=== PATIENT | male | born 1970 | race Caucasian/White ===

== ENCOUNTER 2020-10-04 21:35 | Inpatient (IN) ==
[2020-10-04] MEDS ORDERED: SODIUM CHLORIDE 0.9% 1000ML 1,000 ML IV ONE (22:01)
[2020-10-04] MEDS ORDERED: DEXAMETHASONE SOD INJ 10 MG/ML VIAL IV ONE (22:01)
--- NOTE | 2020-10-04 22:09 | Emergency Department Note ---
History of Present Illness General Chief complaint: Illness Stated complaint: SOB,COUGH POSSIBLY DEHYDRATED, COVID+ Time Seen by Provider: 10/04/20 21:42 Source: patient Mode of arrival: ambulatory Limitations: no limitations History of Present Illness This patient is a 50-year-old male who presents to emergency department for evaluation of shortness of breath, dehydration and positive COVID-19 test. Patient first developed COVID symptoms 5 days ago. He was tested t at [facility] yesterday which was positive. Patient reports he has had fever, cough, shortness of breath and fatigue. He has had a decreased appetite, but denies nausea/vomiting or diarrhea. Patient states that he is mostly short of breath with exertion but feels like he is able to catch his breath. He states that his cough has been dry. He has not been eating much due to his decreased appetite. He is concerned about dehydration as he states he has a history of dehydration. He states that his was very concerned about him and made him come here for evaluation after talking to a nurse friend. Patient has a history of sleep apnea and obesity. He denies any history of asthma or COPD. Home Medications Medication Instructions Recorded Confirmed Type albuterol sulfate [Ventolin HFA] 2 puff INHALATION QID PRN 10/04/20 10/04/20 History dextroamphetamine-amphetamine 20 - 40 mg PO QAM 10/04/20 10/04/20 History [Adderall XR] dextroamphetamine-amphetamine 10 mg PO DAILY PRN 10/04/20 10/04/20 History [Adderall] levothyroxine 200 mcg PO QAM 10/04/20 10/04/20 History lisinopril 20 mg PO QAM 10/04/20 10/04/20 History loratadine 10 mg PO DAILY PRN 10/04/20 10/04/20 History [id number] C-herb no.124 1 tab PO DAILY 10/04/20 10/04/20 History [Airborne Gummy] Allergies Allergy/AdvReac Type Severity Reaction Status Date / Time Bactrim Allergy Unknown hives Verified 03/09/20 12:58 sulfamethoxazole [Bactrim] Allergy Unknown hives Verified 10/04/20 22:52 trimethoprim [Bactrim] Allergy Unknown hives Verified 10/04/20 22:52 Past Med/Surg History Medical History HTN (hypertension) Obstructive sleep apnea Surgical History H/O: vasectomy Social History (Updated 10/04/20 @ 22:19 by Flores Saleem PA-C) Smoking Status: Never smoker Hx Alcohol Use: No Hx Substance Use: No Preferred Language: Haitian Communication Ability: Effective 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: No Beliefs That Will Affect Care: None marital status: Current Living Situation: Spouse Other Information That Helps Us Care for You: No Feels Safe at Home: Yes Safety Concerns: Feels Safe At This Time Assistive Devices: Oxygen - Continuous Review of Systems A total of 10 systems reviewed and were otherwise negative Physical Exam Vital Signs Vital Signs - 24 hr 10/04/20 21:38 10/04/20 21:45 10/04/20 22:05 Temperature 37.5 C Temperature Source Oral Pulse Rate 84 82 85 Pulse Rate [Apical] 84 Pulse Rate from SpO2 Sensor 85 Pulse Rhythm Regular Pulse Rhythm [Apical] Regular Pulse Strength [Apical] Normal Respiratory Rate 22 24 22 Respiratory Effort / Characteristics Non-Labored Spontaneous Respiratory Depth Normal Normal Respiratory Pattern Regular Blood Pressure 158/86 H Blood Pressure [Left Arm] 112/83 Blood Pressure Mean 110 Blood Pressure Mean [Left Arm] 92 Blood Pressure Position [Left Arm] Sitting Pulse Oximetry 90 85 L 86 L Oxygen Delivery Method Room Air Room Air Room Air Oxygen Flow Rate Sepsis Recent Fever Within 48 Hours No Sepsis New/Unexplained Change in Mental Status N/A Sepsis Action Taken by Nursing No Action Required 10/04/20 22:09 10/04/20 22:20 10/04/20 22:30 Temperature Temperature Source Pulse Rate 86 92 H 87 Pulse Rate [Apical] Pulse Rate from SpO2 Sensor 86 87 Pulse Rhythm Pulse Rhythm [Apical] Pulse Strength [Apical] Respiratory Rate 18 22 24 Respiratory Effort / Characteristics Respiratory Depth Respiratory Pattern Blood Pressure 126/79 123/77 Blood Pressure [Left Arm] Blood Pressure Mean 94 92 Blood Pressure Mean [Left Arm] Blood Pressure Position [Left Arm] Pulse Oximetry 90 92 94 Oxygen Delivery Method Nasal Cannula Nasal Cannula Nasal Cannula Oxygen Flow Rate 2 2 2 Sepsis Recent Fever Within 48 Hours Sepsis New/Unexplained Change in Mental Status Sepsis Action Taken by Nursing 10/04/20 22:40 10/04/20 23:00 10/04/20 23:30 Temperature Temperature Source Pulse Rate 84 83 77 Pulse Rate [Apical] Pulse Rate from SpO2 Sensor 84 83 77 Pulse Rhythm Pulse Rhythm [Apical] Pulse Strength [Apical] Respiratory Rate 22 18 22 Respiratory Effort / Characteristics Respiratory Depth Respiratory Pattern Blood Pressure 112/83 115/66 Blood Pressure [Left Arm] Blood Pressure Mean 92 82 Blood Pressure Mean [Left Arm] Blood Pressure Position [Left Arm] Pulse Oximetry 93 93 94 Oxygen Delivery Method Nasal Cannula Nasal Cannula Nasal Cannula Oxygen Flow Rate 2 2 2 Sepsis Recent Fever Within 48 Hours Sepsis New/Unexplained Change in Mental Status Sepsis Action Taken by Nursing 10/05/20 00:00 10/05/20 00:30 10/05/20 01:00 Temperature Temperature Source Pulse Rate 80 88 77 Pulse Rate [Apical] Pulse Rate from SpO2 Sensor 81 78 Pulse Rhythm Pulse Rhythm [Apical] Pulse Strength [Apical] Respiratory Rate 20 20 26 H Respiratory Effort / Characteristics Respiratory Depth Respiratory Pattern Blood Pressure 114/64 116/66 115/64 Blood Pressure [Left Arm] Blood Pressure Mean 80 82 81 Blood Pressure Mean [Left Arm] Blood Pressure Position [Left Arm] Pulse Oximetry 96 95 93 Oxygen Delivery Method Nasal Cannula Nasal Cannula Nasal Cannula Oxygen Flow Rate 2 2 2 Sepsis Recent Fever Within 48 Hours Sepsis New/Unexplained Change in Mental Status Sepsis Action Taken by Nursing 10/05/20 01:30 10/05/20 01:50 10/05/20 02:00 Temperature Temperature Source Pulse Rate 76 75 73 Pulse Rate [Apical] Pulse Rate from SpO2 Sensor 75 74 73 Pulse Rhythm Pulse Rhythm [Apical] Pulse Strength [Apical] Respiratory Rate 26 H 17 22 Respiratory Effort / Characteristics Respiratory Depth Respiratory Pattern Blood Pressure 104/59 L 105/63 Blood Pressure [Left Arm] Blood Pressure Mean 74 77 Blood Pressure Mean [Left Arm] Blood Pressure Position [Left Arm] Pulse Oximetry 94 94 94 Oxygen Delivery Method Nasal Cannula Nasal Cannula Nasal Cannula Oxygen Flow Rate 2 2 2 Sepsis Recent Fever Within 48 Hours Sepsis New/Unexplained Change in Mental Status Sepsis Action Taken by Nursing 10/05/20 02:30 10/05/20 03:00 Temperature Temperature Source Pulse Rate 70 81 Pulse Rate [Apical] Pulse Rate from SpO2 Sensor 71 82 Pulse Rhythm Pulse Rhythm [Apical] Pulse Strength [Apical] Respiratory Rate 22 24 Respiratory Effort / Characteristics Respiratory Depth Respiratory Pattern Blood Pressure 101/68 Blood Pressure [Left Arm] Blood Pressure Mean 79 Blood Pressure Mean [Left Arm] Blood Pressure Position [Left Arm] Pulse Oximetry 95 96 Oxygen Delivery Method Nasal Cannula Nasal Cannula Oxygen Flow Rate 2 2 Sepsis Recent Fever Within 48 Hours Sepsis New/Unexplained Change in Mental Status Sepsis Action Taken by Nursing VITALS: Vitals are noted on the nurse's note and reviewed by myself. GENERAL: This is a 50-year-old male, in no acute distress, well-developed well- nourished. SKIN: The skin was without rashes. EARS: External auditory canals clear, tympanic membranes pearly song without erythema or effusion bilaterally. EYES: Pupils equal round and reactive to light and accommodation. NOSE: Patent, turbinates without inflammation or discharge. MOUTH: Mucous membranes slightly dry. Tonsils are not enlarged. Pharynx without erythema or exudate. NECK: Supple without nuchal rigidity. No lymphadenopathy. HEART: Regular rate and rhythm without murmurs gallops or rubs. LUNGS: Decreased lung sounds throughout. No retractions or accessory muscle use. NEURO: Patient was alert and oriented to person place and time. Course Consultations Consultation #1: [place] [facility] [place] Administered Medications Albuterol (Albuterol Hfa 8 Gm Inhaler) 2 puffs INH QIDR PRN PRN Reason: Shortness Of Breath Or Wheezing Stop: 11/04/20 10:16 Last Admin: 10/09/20 00:03 Dose: 2 puffs Documented by: [id number] Amphetamine/Dextroamphetamine (Dextroamphetamine/Amphetamine Er 10 Mg Cap) 20 mg PO DAILY [facility] Stop: 10/20/20 09:59 Last Admin: 10/07/20 10:43 Dose: Not Given Documented by: [id number] Admin: 10/06/20 10:22 Dose: 20 mg Documented by: [id number] Azithromycin (Azithromycin 250 Mg Tab) 250 mg PO QAM [facility] Stop: 10/10/20 09:01 Last Admin: 10/09/20 08:38 Dose: 250 mg Documented by: [id number] Admin: 10/08/20 08:37 Dose: 250 mg Documented by: [id number] Admin: 10/07/20 08:41 Dose: 250 mg Documented by: [id number] Enoxaparin Sodium (Enoxaparin 100 Mg/1ml Syr) 100 mg SQ Q12 [facility] Stop: 11/06/20 20:59 Last Admin: 10/09/20 08:38 Dose: 100 mg Documented by: [id number] Admin: 10/08/20 21:38 Dose: 100 mg Documented by: [id number] Admin: 10/08/20 08:36 Dose: 100 mg Documented by: [id number] Admin: 10/07/20 21:40 Dose: 100 mg Documented by: [id number] Dexamethasone 6 mg/ Syringe 1.5 mls @ 1 mls/min IV DAILY [facility] Stop: 10/14/20 09:02 Last Admin: 10/09/20 08:37 Dose: 1 mls/min Documented by: [id number] Admin: 10/08/20 08:36 Dose: 1 mls/min Documented by: [id number] Admin: 10/07/20 08:41 Dose: 1 mls/min Documented by: [id number] Admin: 10/06/20 09:06 Dose: 1 mls/min Documented by: [id number] Admin: 10/05/20 08:02 Dose: 1 mls/min Documented by: [id number] Remdesivir 100 mg/ Sodium (Chloride) 250 mls @ 250 mls/hr IV Q24H [facility]; Protocol Stop: 10/09/20 12:59 Last Admin: 10/09/20 11:25 Dose: 250 mls/hr Documented by: [id number] Infusion: 10/08/20 12:19 Dose: 0 mls/hr Documented by: [id number] Admin: 10/08/20 11:14 Dose: 250 mls/hr Documented by: [id number] Infusion: 10/07/20 13:15 Dose: 0 mls/hr Documented by: [id number] Admin: 10/07/20 12:11 Dose: 250 mls/hr Documented by: [id number] Infusion: 10/06/20 15:31 Dose: 0 mls/hr Documented by: [id number] Admin: 10/06/20 13:40 Dose: 250 mls/hr Documented by: [id number] Insulin Aspart (Insulin Aspart 100 Units/Ml 3 Ml Pen) 0 units SC ACHS [facility] Stop: 11/04/20 11:29 Last Admin: 10/09/20 08:39 Dose: 10 units Documented by: [id number] Cosigned by: [id number] Admin: 10/08/20 23:05 Dose: Not Given Documented by: [id number] Admin: 10/08/20 17:58 Dose: 10 units Documented by: [id number] Cosigned by: [id number] Admin: 10/08/20 12:50 Dose: 18 units Documented by: [id number] Cosigned by: [id number] Admin: 10/08/20 08:00 Dose: 13 units Documented by: [id number] Cosigned by: [id number] Admin: 10/07/20 21:23 Dose: Not Given Documented by: [id number] Admin: 10/07/20 18:31 Dose: 17 units Documented by: [id number] Cosigned by: [id number] Admin: 10/07/20 14:23 Dose: 13 units Documented by: [id number] Cosigned by: [id number] Admin: 10/07/20 09:35 Dose: 11 units Documented by: [id number] Cosigned by: [id number] Admin: 10/06/20 21:00 Dose: Not Given Documented by: [id number] Cosigned by: [id number] Admin: 10/06/20 18:22 Dose: 23 units Documented by: [id number] Cosigned by: [id number] Admin: 10/06/20 14:39 Dose: 14 units Documented by: [id number] Cosigned by: [id number] Admin: 10/06/20 09:08 Dose: 4 units Documented by: [id number] Cosigned by: [id number] Admin: 10/05/20 20:29 Dose: 8 units Documented by: [id number] Cosigned by: [id number] Admin: 10/05/20 17:41 Dose: 22 units Documented by: [id number] Cosigned by: [id number] Admin: 10/05/20 12:05 Dose: 19 units Documented by: [id number] Cosigned by: [id number] Insulin Glargine (Insulin Glargine Solostar 100 Units/Ml 3 Ml Pen) 20 units SC DAILY [facility] Stop: 11/07/20 08:59 Last Admin: 10/09/20 08:39 Dose: 20 units Documented by: [id number] Cosigned by: [id number] Levothyroxine Sodium (Levothyroxine Sodium 200 Mcg Tablet) 200 mcg PO DAILYBB [facility] Stop: 11/04/20 06:29 Last Admin: 10/09/20 06:16 Dose: 200 mcg Documented by: [id number] Admin: 10/08/20 06:29 Dose: 200 mcg Documented by: [id number] Admin: 10/07/20 05:42 Dose: 200 mcg Documented by: [id number] Admin: 10/06/20 05:42 Dose: 200 mcg Documented by: [id number] Admin: 10/05/20 06:52 Dose: 200 mcg Documented by: [id number] Lisinopril (Lisinopril 20 Mg Tab) 20 mg PO QAM [facility] Stop: 11/04/20 08:59 Last Admin: 10/09/20 08:38 Dose: 20 mg Documented by: [id number] Admin: 10/08/20 08:37 Dose: 20 mg Documented by: [id number] Admin: 10/07/20 08:41 Dose: 20 mg Documented by: [id number] Admin: 10/06/20 09:04 Dose: 20 mg Documented by: [id number] Admin: 10/05/20 08:02 Dose: 20 mg Documented by: [id number] Lorazepam (Lorazepam 0.5 Mg Tab) 0.5 mg PO Q6H PRN PRN Reason: Anxiety Stop: 11/04/20 09:01 Last Admin: 10/07/20 00:54 Dose: 0.5 mg Documented by: [id number] Lorazepam (Lorazepam 1 Mg Tab) 1 mg PO HS [facility] Stop: 11/06/20 20:59 Last Admin: 10/08/20 21:37 Dose: 1 mg Documented by: [id number] Admin: 10/07/20 21:40 Dose: 1 mg Documented by: [id number] Melatonin (Melatonin 3 Mg Tab) 3 mg PO HS PRN PRN Reason: Sleep Stop: 11/06/20 17:51 Last Admin: 10/08/20 21:37 Dose: 3 mg Documented by: [id number] Admin: 10/07/20 21:40 Dose: 3 mg Documented by: [id number] Sodium Chloride (Sodium Chloride 0.9% 10ml Flush) 30 ml IV Q24H [facility] Stop: 10/09/20 12:01 Last Admin: 10/08/20 12:21 Dose: 30 ml Documented by: [id number] Admin: 10/07/20 13:38 Dose: 30 ml Documented by: [id number] Admin: 10/06/20 16:37 Dose: 30 ml Documented by: [id number] Zinc Sulfate (Zinc Sulfate 220 Mg Capsule) 220 mg PO QAM [facility] Stop: 11/04/20 08:59 Last Admin: 10/09/20 08:38 Dose: 220 mg Documented by: [id number] Admin: 10/08/20 08:37 Dose: 220 mg Documented by: [id number] Admin: 10/07/20 08:41 Dose: 220 mg Documented by: [id number] Admin: 10/06/20 09:04 Dose: 220 mg Documented by: [id number] Admin: 10/05/20 08:03 Dose: 220 mg Documented by: [id number] Discontinued Medications Albuterol (Albuterol Hfa 8 Gm Inhaler) 2 puffs INH QIDR [facility] Stop: 11/04/20 06:59 Last Admin: 10/05/20 07:39 Dose: 2 puffs Documented by: [id number] Amphetamine/Dextroamphetamine (Amphetamine Asp/Sulf/Dextramph 10 Mg Tab) 10 mg PO ONE ONE Stop: 10/05/20 10:31 Last Admin: 10/05/20 10:26 Dose: 10 mg Documented by: [id number] Dexamethasone (Dexamethasone Sod Inj 10 Mg/Ml Vial) 6 mg IV NOW ONE Stop: 10/04/20 22:02 Last Admin: 10/04/20 22:56 Dose: 6 mg Documented by: [id number] Enoxaparin Sodium (Enoxaparin 1.5 Mg/Kg) 1 mg SQ Q24H [facility] Stop: 11/04/20 03:41 Last Admin: 10/05/20 04:40 Dose: Not Given Documented by: [id number] Enoxaparin Sodium (Enoxaparin 80 Mg/0.8 Ml Syr) 70 mg SQ Q12 [facility] Stop: 11/04/20 08:59 Last Admin: 10/07/20 08:42 Dose: 70 mg Documented by: [id number] Admin: 10/06/20 20:37 Dose: 70 mg Documented by: [id number] Admin: 10/06/20 09:05 Dose: 70 mg Documented by: [id number] Admin: 10/05/20 20:25 Dose: 70 mg Documented by: [id number] Admin: 10/05/20 08:03 Dose: 70 mg Documented by: [id number] Sodium Chloride (Nss 1000ml) 1,000 mls @ 999 mls/hr IV .Q1H1M ONE Stop: 10/04/20 23:01 Last Infusion: 10/05/20 00:00 Dose: 0 mls/hr Documented by: [id number] Admin: 10/04/20 22:57 Dose: 999 mls/hr Documented by: [id number] Remdesivir 200 mg/ Sodium (Chloride) 250 mls @ 125 mls/hr IV ONE ONE; Protocol Stop: 10/05/20 06:29 Last Infusion: 10/05/20 06:53 Dose: 0 mls/hr Documented by: [id number] Admin: 10/05/20 04:54 Dose: 125 mls/hr Documented by: [id number] Azithromycin 500 mg/ Dextrose 255 mls @ 125 mls/hr IV DAILY [facility] Stop: 10/12/20 08:59 Last Infusion: 10/06/20 13:40 Dose: 0 mls/hr Documented by: [id number] Admin: 10/06/20 11:22 Dose: 125 mls/hr Documented by: [id number] Infusion: 10/05/20 10:27 Dose: 0 mls/hr Documented by: [id number] Admin: 10/05/20 08:11 Dose: 125 mls/hr Documented by: [id number] Furosemide 20 mg/ Syringe 2 mls @ 4 mls/min IV ONE ONE Stop: 10/07/20 09:31 Last Admin: 10/07/20 12:11 Dose: 4 mls/min Documented by: [id number] Insulin Aspart (Insulin Aspart 100 Units/Ml 3 Ml Pen) 0 units SC 0000,0400 [facility] Stop: 10/06/20 04:01 Last Admin: 10/06/20 04:07 Dose: 3 units Documented by: [id number] Cosigned by: [id number] Admin: 10/06/20 00:06 Dose: 2 units Documented by: [id number] Cosigned by: [id number] Insulin Glargine (Insulin Glargine Solostar 100 Units/Ml 3 Ml Pen) 35 units SC DAILY [facility] Stop: 11/05/20 08:59 Last Admin: 10/06/20 10:22 Dose: 35 units Documented by: [id number] Cosigned by: [id number] Insulin Glargine (Insulin Glargine Solostar 100 Units/Ml 3 Ml Pen) 30 units SC DAILY [facility] Stop: 11/06/20 08:59 Last Admin: 10/07/20 09:36 Dose: 30 units Documented by: [id number] Cosigned by: [id number] Insulin Glargine (Insulin Glargine Solostar 100 Units/Ml 3 Ml Pen) 25 units SC DAILY [facility] Stop: 11/07/20 08:59 Last Admin: 10/08/20 09:00 Dose: 25 units Documented by: [id number] Cosigned by: [id number] Insulin Human NPH (Insulin Human Nph) 40 units SC NOW ONE Stop: 10/05/20 10:31 Last Admin: 10/05/20 11:11 Dose: 40 units Documented by: [id number] Cosigned by: [id number] Sodium Chloride (Sodium Chloride 0.9% 10ml Flush) 30 ml IV Q24H [facility] Stop: 10/09/20 03:31 Last Admin: 10/05/20 04:40 Dose: Not Given Documented by: [id number] Medical Decision Making Differential Diagnosis Differential diagnosis includes Covid pneumonia, PE, pleural effusion, hypoxia, CHF, pneumothorax, among others. Home Medications Current Medication List: was personally reviewed by me Laboratory Data Attestation: I reviewed the patient's lab results. Result diagrams: 10/05/20 07:22 10/08/20 05:21 Lab Results 10/04/20 10/04/20 10/04/20 Range/Units 22:27 22:27 22:27 WBC 4.83 (4.8-10.8) K/uL RBC 4.76 (4.7-6.1) M/uL Hgb 14.4 (14.0-18.0) g/dL Hct 42.9 (42-52) % MCV 90.1 (80-100) fL MCH 30.3 (25-34) pg MCHC 33.6 (32-36) g/dL RDW Std Deviation 43.8 (36.4-46.3) fL RDW Coeff of Sharon 13.3 (11.5-14.5) % Plt Count 140 (130-400) K/uL MPV 11.3 H (7.4-10.4) fL Immature Gran % (Auto) 0.2 % Neut % (Auto) 65.9 % Lymph % (Auto) 26.9 % Davie % (Auto) 6.6 % Eos % (Auto) 0.2 % Baso % (Auto) 0.2 % Neut # (Auto) 3.18 (1.4-6.5) K/uL Lymph # (Auto) 1.30 (1.2-3.4) K/uL Davie # (Auto) 0.32 (0.11-0.59) K/uL Eos # (Auto) 0.01 (0-0.5) K/uL Baso # (Auto) 0.01 (0-0.2) K/uL Immature Gran # (Auto) 0.01 (0.00-0.02) K/uL D-Dimer 790 H* (0-500) ug/L FEU Sodium (136-145) mmol/L Potassium (3.5-5.1) mmol/L Chloride (98-107) mmol/L Carbon Dioxide (21-32) mmol/L Anion Gap (3-11) BUN (7-18) mg/dl Creatinine (0.6-1.4) mg/dl Est Cr Clr Drug Dosing ml/min Est GFR ( Amer) Est GFR (Non-Af Amer) BUN/Creatinine Ratio (10-20) Glucose (70-99) mg/dl Calcium (8.5-10.1) mg/dl Total Bilirubin (0.2-1) mg/dl AST (15-37) U/L ALT (12-78) U/L Alkaline Phosphatase (45-117) U/L Troponin I (0-0.045) ng/ml Total Protein (6.4-8.2) gm/dl Albumin (3.4-5.0) gm/dl Globulin (2.5-4.0) gm/dl Albumin/Globulin Ratio (0.9-2) COVID-19 Eval Order SARS-CoV-2 (PCR) (Negative) Influenza Type A (PCR) (Neg) Influenza Type B (PCR) (Neg) RSV (RT-PCR) (Neg) SARS-CoV-2, RNA, NAAT Blood Type O Positive Antibody Screen NEGATIVE 10/04/20 10/05/20 10/05/20 Range/Units 22:27 01:25 01:25 WBC (4.8-10.8) K/uL RBC (4.7-6.1) M/uL Hgb (14.0-18.0) g/dL Hct (42-52) % MCV (80-100) fL MCH (25-34) pg MCHC (32-36) g/dL RDW Std Deviation (36.4-46.3) fL RDW Coeff of Sharon (11.5-14.5) % Plt Count (130-400) K/uL MPV (7.4-10.4) fL Immature Gran % (Auto) % Neut % (Auto) % Lymph % (Auto) % Davie % (Auto) % Eos % (Auto) % Baso % (Auto) % Neut # (Auto) (1.4-6.5) K/uL Lymph # (Auto) (1.2-3.4) K/uL Davie # (Auto) (0.11-0.59) K/uL Eos # (Auto) (0-0.5) K/uL Baso # (Auto) (0-0.2) K/uL Immature Gran # (Auto) (0.00-0.02) K/uL D-Dimer (0-500) ug/L FEU Sodium 137 (136-145) mmol/L Potassium 3.8 (3.5-5.1) mmol/L Chloride 100 (98-107) mmol/L Carbon Dioxide 29 (21-32) mmol/L Anion Gap 8.0 (3-11) BUN 13 (7-18) mg/dl Creatinine 1.12 (0.6-1.4) mg/dl Est Cr Clr Drug Dosing 108.4 ml/min Est GFR ( Amer) 88.3 Est GFR (Non-Af Amer) 76.2 BUN/Creatinine Ratio 11.7 (10-20) Glucose 185 H (70-99) mg/dl Calcium 8.7 (8.5-10.1) mg/dl Total Bilirubin 0.7 (0.2-1) mg/dl AST 61 H (15-37) U/L ALT 73 (12-78) U/L Alkaline Phosphatase 48 (45-117) U/L Troponin I < 0.015 (0-0.045) ng/ml Total Protein 7.7 (6.4-8.2) gm/dl Albumin 3.3 L (3.4-5.0) gm/dl Globulin 4.4 H (2.5-4.0) gm/dl Albumin/Globulin Ratio 0.7 L (0.9-2) COVID-19 Eval Order [facility]FluRsv at [facility] SARS-CoV-2 (PCR) (Negative) Influenza Type A (PCR) (Neg) Influenza Type B (PCR) (Neg) RSV (RT-PCR) (Neg) SARS-CoV-2, RNA, NAAT Cancelled Blood Type Antibody Screen 10/05/20 Range/Units 01:25 WBC (4.8-10.8) K/uL RBC (4.7-6.1) M/uL Hgb (14.0-18.0) g/dL Hct (42-52) % MCV (80-100) fL MCH (25-34) pg MCHC (32-36) g/dL RDW Std Deviation (36.4-46.3) fL RDW Coeff of Sharon (11.5-14.5) % Plt Count (130-400) K/uL MPV (7.4-10.4) fL Immature Gran % (Auto) % Neut % (Auto) % Lymph % (Auto) % Davie % (Auto) % Eos % (Auto) % Baso % (Auto) % Neut # (Auto) (1.4-6.5) K/uL Lymph # (Auto) (1.2-3.4) K/uL Davie # (Auto) (0.11-0.59) K/uL Eos # (Auto) (0-0.5) K/uL Baso # (Auto) (0-0.2) K/uL Immature Gran # (Auto) (0.00-0.02) K/uL D-Dimer (0-500) ug/L FEU Sodium (136-145) mmol/L Potassium (3.5-5.1) mmol/L Chloride (98-107) mmol/L Carbon Dioxide (21-32) mmol/L Anion Gap (3-11) BUN (7-18) mg/dl Creatinine (0.6-1.4) mg/dl Est Cr Clr Drug Dosing ml/min Est GFR ( Amer) Est GFR (Non-Af Amer) BUN/Creatinine Ratio (10-20) Glucose (70-99) mg/dl Calcium (8.5-10.1) mg/dl Total Bilirubin (0.2-1) mg/dl AST (15-37) U/L ALT (12-78) U/L Alkaline Phosphatase (45-117) U/L Troponin I (0-0.045) ng/ml Total Protein (6.4-8.2) gm/dl Albumin (3.4-5.0) gm/dl Globulin (2.5-4.0) gm/dl Albumin/Globulin Ratio (0.9-2) COVID-19 Eval Order SARS-CoV-2 (PCR) POSITIVE A* (Negative) Influenza Type A (PCR) Negative (Neg) Influenza Type B (PCR) Negative (Neg) RSV (RT-PCR) Negative (Neg) SARS-CoV-2, RNA, NAAT Blood Type Antibody Screen Imaging Data Attestation: I personally reviewed and interpreted this imaging study as follows: My Impression: CHEST 1 VIEW: Bilateral opacities consistent with multifocal pneumonia. ECG Data Attestation: I personally reviewed and interpreted this ECG as follows: Indication: + SOB/dyspnea Rate (beats per minute): 83 Rhythm: + normal sinus ECG Intervals/blocks: + Normal QRS ECG ST segments: + T-wave inversions (Inferior) Change: no significant change MDM Narrative Continuous front desk monitor: Order was placed for continuous front desk monitor. Patient was placed on the front desk monitor. Patient was noted to be in normal sinus rhythm at an initial rate of 85 bpm. The patient is a 50-year-old male who presents today complaining of shortness of breath and concerns for dehydration. Patient tested positive for COVID-19 2 days ago. Labs here revealed no leukocytosis, anemia or concerning electrolyte abnormalities. D-dimer is slightly elevated consistent with COVID-19 infection. Chest x-ray shows a multifocal pneumonia. Patient was hypoxic at 85% on room air on his arrival. He was placed on 2 L via nasal cannula with improvement of his O2 saturations. Patient was given a dose of IV Decadron. Due to his hypoxia and new oxygen requirement, he will require admission. Case was discussed with the [facility] hospitalist service who agreed to evaluate the patient for further care. The hospitalist did request a COVID-19 test as they stated they would not be able to treat him with specific treatments for COVID-19 without having a test done in this facility. COVID-19 test was ordered and was positive. Impression & Plan COVID-19, Hypoxia Discharge Plan Visit Data Chief Complaint: Illness Stated Complaint: SOB,COUGH POSSIBLY DEHYDRATED, COVID+ ED Provider: [facility] ED Midlevel Provider: Flores Saleem Discharge Problem: COVID-19, Hypoxia Patient Disposition: Admitted As Inpatient Discharge Instructions Interventions: ED Discharge Assessment Last Done: 10/05/20 04:07
[2020-10-04 22:37] LABS: Basophils # (auto) 0.01 K/uL (0-0.2); Basophils % (auto) 0.2 %; Eosinophils # (auto) 0.01 K/uL (0-0.5); Eosinophils % (auto) 0.2 %; Hematocrit (blood only) 42.9 % (42-52); Hemoglobin 14.4 g/dL (14.0-18.0); Immature Granulocytes # (auto) 0.01 K/uL (0.00-0.02); Immature Granulocytes % (auto) 0.2 %; Lymphocytes % (auto) 26.9 %; Mean Corpuscular Hemoglobin 30.3 pg (25-34); Mean Corpuscular Hgb Conc 33.6 g/dL (32-36); Mean Corpuscular Volume 90.1 fL (80-100); Mean Platelet Volume 11.3 fL (7.4-10.4); Monocytes # (auto) 0.32 K/uL (0.11-0.59); Monocytes % (auto) 6.6 %; Neutrophils # (auto) 3.18 K/uL (1.4-6.5); Neutrophils % (auto) 65.9 %; Platelet Count 140 K/uL (130-400); RDW Coefficient of Variation 13.3 % (11.5-14.5); RDW Standard Deviation 43.8 fL (36.4-46.3); Red Blood Count 4.76 M/uL (4.7-6.1); White Blood Count 4.83 K/uL (4.8-10.8)
[2020-10-04 22:52] LABS: D Dimer 790 ug/L FEU (0-500)
[2020-10-04 22:56] LABS: Alanine Aminotransferase 73 U/L (12-78); Albumin Level 3.3 gm/dl (3.4-5.0); Aspartate Aminotransferase 61 U/L (15-37); BUN Creatinine Ratio 11.7 (10-20); Blood Urea Nitrogen 13 mg/dl (7-18); Calcium 8.7 mg/dl (8.5-10.1); Carbon Dioxide 29 mmol/L (21-32); Chloride 100 mmol/L (98-107); Creatinine Clr Calc Pharmacy 108.4 ml/min; Est GFR (African American) 88.3; Est GFR (Non-African American) 76.2; Glucose 185 mg/dl (70-99); Potassium 3.8 mmol/L (3.5-5.1); Sodium 137 mmol/L (136-145)
[2020-10-04 23:01] LABS: Albumin Globulin Ratio 0.7 (0.9-2); Alkaline Phosphatase 48 U/L (45-117); Bilirubin,Total 0.7 mg/dl (0.2-1); Globulin 4.4 gm/dl (2.5-4.0); Total Protein 7.7 gm/dl (6.4-8.2); Troponin I < 0.015 ng/ml (0-0.045)
[2020-10-05 02:30] LABS: Influenza A virus by PCR Negative (Neg); Influenza B virus by PCR Negative (Neg); RSV by PCR Negative (Neg)
[2020-10-05 02:47] LABS: SARS CoV2 RNA(COVID-19) InHosp POSITIVE (Negative)
[2020-10-05] MEDS ORDERED: SODIUM CHLORIDE 0.9% 10ML FLUSH IV SCH (03:30)
--- NOTE | 2020-10-05 03:30 | History & Physical Report ---
Date of Service October 05, 2020 Assessment & Plan (1) COVID-19: Mr. Mejia is a 50 yo M with a PMHx of obesity, obstructive sleep apnea, and HTN who tested positive COVID 19 test on 10/03/20 at a local [facility]. He came to the ED this evening for worsening SOB. Patient was hypoxic on arrival and placed on supplemental oxygen. - patient tested positive on admission to our facility (PCR testing) - meets criteria for severe disease (O2 saturation < 94%) - risk factors for severe disease include obesity, hx SANNA - SIRS criteria not met on admission, patient not septic - not lymphopenic on admission. d-dimer elevated to 720. CXR with diffuse interstitial opacities - will check CRP, ferritin, LDH - start Remdesivir (indicated for severe disease); CrCl > 30; recommend 5 day course - start Dexamethasone, (indicated for severe disease); 1 dose given in ED; recommend 10 day course - we will hold off on convalescent plasma as it has been > 3 days since symptom onset (09/29/20) - start zinc sulfate 220mg, PO daily - start Azithromycin 500mg, IV daily - start Lovenox 1.5mg/kg, SQ, BID - Ventolin, 2 puffs, QID, IN + q2h prn - isolation/airborne precautions - place in negative pressure room (2) Hypoxia: - O2 sat 85% on room air on presentation to ED - improved to 96% with 2L of supplemental oxygen via NC - likely secondary to COVID 19 infection - continue tx as above (3) Obstructive sleep apnea: - history of - CPAP ordered (4) HTN (hypertension): - history of - continue home dose lisinopril (5) Hypothyroid: - continue home dose Synthroid Dispo: Med/Surg with tele Diet: Heart Healthy Dvt ppx: Lovenox as above Code: Full, I discussed with patient History of Present Illness Primary Care Provider: Bethel Coyle Jr, DO Mr. Mejia is a 50 yo gentleman with a PMHx of obesity, obstructive sleep apnea, and HTN who presented to the ED for worsening SOB. Of note, he began having fevers/fatigue/cough/SOB on 09/29/20. He went to a local [facility] clinic on 10/03/20 where he tested positive for COVID 19. He has no history of underlying lung disease, although he was given an albuterol ProAir inhaler once by his PCP for wheezing with a cold. He used it twice today and it helped only somewhat. He is bringing some mucous up when he coughs. He denies any nausea/vomiting, diarrhea. Prior to being diagnosed, he denies knowledge of being in contact with a known COVID 19 positive. He is not immunocompromised. Social History. He lives with his and their two school age children. + positive for covid after him. He is a non-smoker. On arrival to the ED, his oxygen saturation was 85% on room air. He was afebrile, HR 84, RR 22, BP 158/86. His WBC was normal, no evidence of lymphopenia. Hgb normal. Electrolytes WNL. Cr at 1.12. Ddimer elevated to 790. Respiratory Biofire neg for RSV, Influenza A and B, + for covid 19. CXR with diffuse interstitia opacities. Patient was placed on 2L of supplemental oxygen via NC, after which his O2 saturation improved to 96%. He was given a 1 liter bolus of normal saline and Dexamethasone 6mg, IV, once. Allergies Allergy/AdvReac Type Severity Reaction Status Date / Time Bactrim Allergy Unknown hives Verified 03/09/20 12:58 sulfamethoxazole [Bactrim] Allergy Unknown hives Verified 10/04/20 22:52 trimethoprim [Bactrim] Allergy Unknown hives Verified 10/04/20 22:52 Home Medications Medication Instructions Recorded Confirmed Type albuterol sulfate [Ventolin HFA] 2 puff INHALATION QID PRN 10/04/20 10/04/20 History dextroamphetamine-amphetamine 20 - 40 mg PO QAM 10/04/20 10/04/20 History [Adderall XR] dextroamphetamine-amphetamine 10 mg PO DAILY PRN 10/04/20 10/04/20 History [Adderall] levothyroxine 200 mcg PO QAM 10/04/20 10/04/20 History lisinopril 20 mg PO QAM 10/04/20 10/04/20 History loratadine 10 mg PO DAILY PRN 10/04/20 10/04/20 History [id number] C-herb no.124 1 tab PO DAILY 10/04/20 10/04/20 History [Airborne Gummy] Past Med/Surg History Medical History HTN (hypertension) Obstructive sleep apnea Surgical History H/O: vasectomy Social History (Updated 10/04/20 @ 22:19 by Flores Saleem PA-C) Smoking Status: Never smoker Hx Alcohol Use: No Hx Substance Use: No Preferred Language: [place]er Communication Ability: Effective 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: No Beliefs That Will Affect Care: None marital status: Current Living Situation: Spouse Other Information That Helps Us Care for You: No Feels Safe at Home: Yes Safety Concerns: Feels Safe At This Time Assistive Devices: None Review of Systems Constitutional: + fever Respiratory: + cough and + dyspnea Physical Exam Constitutional: + obese and cooperative; no acute distress Eyes: + anicteric sclerae ENMT: external ear and nose normal, oropharynx normal Neck: normal visual inspection and trachea midline Respiratory: normal respiratory effort; no labored breathing Auscultation: + diminished lung sounds; no crackles and no wheezes Cardiovascular: RRR, no murmur, no edema Heart Sounds: normal S1 and normal S2 Extremities: + pedal edema (trace,b/l) Gastrointestinal (Abdomen): Inspection/Auscultation: abdomen normal to inspection and normal bowel sounds Skin: no rashes, warm and dry Neurologic: moves all extremities Psychiatric: A+Ox3, euthymic affect Results & Data Results & Data ([facility]) Vital Signs (Past 12 Hours) Vital Signs Temp Pulse Pulse Resp BP BP Pulse Ox 10/05/20 03:00 81 24 96 10/05/20 02:30 70 22 101/68 95 10/05/20 02:00 73 22 105/63 94 10/05/20 01:50 75 17 94 10/05/20 01:30 76 26 H 104/59 L 94 10/05/20 01:00 77 26 H 115/64 93 10/05/20 00:30 88 20 116/66 95 10/05/20 00:00 80 20 114/64 96 10/04/20 23:30 77 22 115/66 94 10/04/20 23:00 83 18 112/83 93 10/04/20 22:40 84 22 93 10/04/20 22:30 87 24 123/77 94 10/04/20 22:20 92 H 22 92 10/04/20 22:09 86 18 126/79 90 10/04/20 22:05 85 22 86 L 10/04/20 21:45 82 84 24 112/83 85 L 10/04/20 21:38 37.5 C 84 22 158/86 H 90 Supervising Physician Co-Signing Physician Notes Attending addendum: I have physically seen this patient, have supervised the medical residents activities, and agree with the H&P unless as otherwise noted. Assessment and Plan: Pneumonia due to COVID-19 virus with hypoxia- Room air oxygen saturation was 85% upon admission, improved to 96% with 2 L. Dexamethasone 6 mg IV every morning Remdesivir IV per protocol Zinc sulfate turn 20 mg p.o. daily Azithromycin 5 mg IV daily Lovenox 0.5 mg kilogram subcu twice daily Ventolin HFA 2 puffs 4 times daily, and every 2 hours as needed Obstructive sleep apnea- CPAP at bedtime as needed Remaining orders and notations as noted Resident Activity Tracking Resident Involvement: Resident Care Provided Care Provided: Adult Hospital Medicine
[2020-10-05] MEDS ORDERED: ACETAMINOPHEN 325 MG TAB PO PRN (03:42)
[2020-10-05] MEDS ORDERED: ONDANSETRON INJ 2 MG/ML 2 ML VIAL IV PRN (03:42)
[2020-10-05] MEDS ORDERED: ENOXAPARIN 1.5 MG/KG SQ SCH (03:42)
[2020-10-05] MEDS ORDERED: POLYETHYLENE (MIRALAX) 17 GM PACK PO PRN (03:42)
[2020-10-05] MEDS ORDERED: ENOXAPARIN 0.5 MG/KG SQ SCH (04:30)
[2020-10-05] MEDS ORDERED: REMDESIVIR 200 MG in SODIUM CHLORIDE 0.9% 210 ML IV ONE (04:30)
[2020-10-05] MEDS: LEVOTHYROXINE SODIUM 200 MCG TABLET PO SCH (06:52)
--- NOTE | 2020-10-05 06:57 | XRay Report ---
XR chest 1V portable CLINICAL HISTORY: Shortness of breath. Covid positive patient COMPARISON STUDY: No previous studies for comparison. FINDINGS: The heart is enlarged. There are bilateral pulmonary airspace opacities consistent with a m ultifocal pneumonia. There are no significant pleural effusions.[ IMPRESSION: Cardiomegaly. Bilateral airspace opacities consistent with a multifocal pneumonia ACT 112: Negative or not required by law. Electronically signed by: Garrick Varner M.D. 10/05/2020 6:56 AM
[2020-10-05] MEDS ORDERED: ALBUTEROL HFA 8 GM INHALER INH SCH (07:00)
[2020-10-05 08:01] LABS: Basophils # (auto) 0.01 K/uL (0-0.2); Basophils % (auto) 0.3 %; Hematocrit (blood only) 43.2 % (42-52); Hemoglobin 14.5 g/dL (14.0-18.0); Immature Granulocytes # (auto) 0.01 K/uL (0.00-0.02); Immature Granulocytes % (auto) 0.3 %; Lymphocytes # (auto) 0.92 K/uL (1.2-3.4); Lymphocytes % (auto) 26.1 %; Mean Corpuscular Hgb Conc 33.6 g/dL (32-36); Mean Corpuscular Volume 89.4 fL (80-100); Mean Platelet Volume 11.9 fL (7.4-10.4); Monocytes # (auto) 0.13 K/uL (0.11-0.59); Monocytes % (auto) 3.7 %; Neutrophils # (auto) 2.45 K/uL (1.4-6.5); Neutrophils % (auto) 69.6 %; Platelet Count 158 K/uL (130-400); RDW Coefficient of Variation 13.3 % (11.5-14.5); RDW Standard Deviation 44.1 fL (36.4-46.3); Red Blood Count 4.83 M/uL (4.7-6.1); White Blood Count 3.52 K/uL (4.8-10.8)
[2020-10-05] MEDS: lisinopril 20 MG TAB PO SCH (08:02)
[2020-10-05] MEDS: dexAMETHasone 6 MG in SYRINGE 0 ML IV SCH (08:02)
[2020-10-05] MEDS: ZINC SULFATE 220 MG CAPSULE PO SCH (08:03)
[2020-10-05] MEDS: ENOXAPARIN 80 MG/0.8 ML SYR SQ SCH ×2 (08:03→20:25)
[2020-10-05] MEDS: AZITHROMYCIN 500 MG in DEXTROSE 5% 250 ML IV SCH (08:11)
[2020-10-05 08:44] LABS: BUN Creatinine Ratio 11.2 (10-20); C Reactive Protein 7.25 mg/dl (0-0.29); Calcium 8.9 mg/dl (8.5-10.1); Creatinine Clr Calc Pharmacy 112.8 ml/min; Est GFR (African American) 93.3; Est GFR (Non-African American) 80.5; Potassium 4.7 mmol/L (3.5-5.1)
[2020-10-05] MEDS ORDERED: LORazepam 0.5 MG TAB PO PRN (09:02)
--- NOTE | 2020-10-05 09:02 | Hospitalist Progress Note ---
Date of Service October 05, 2020 Assessment & Plan (1) COVID-19: Mr. Mejia is a 50 yo M with a PMHx of obesity, obstructive sleep apnea, and HTN who tested positive COVID 19 test on 10/03/20 at a local [facility] clinic. He came to the ED this evening for worsening SOB. Patient was hypoxic on arrival and placed on supplemental oxygen. - patient tested positive on admission to our facility (PCR testing) 10/04/20 - meets criteria for severe disease (O2 saturation < 94%) - risk factors for severe disease include obesity, hx SANNA - CXR with diffuse interstitial opacities - started Remdesivir (indicated for severe disease); CrCl > 30; recommend 5 day course unless hypoxia resolves - started Dexamethasone, (indicated for severe disease); 1 dose given in ED; recommend 10 day course unless hypoxia resolves - start zinc sulfate 220mg, PO daily - start Azithromycin 500mg, IV daily - start Lovenox 0.5mg/kg, SQ, BID - Ventolin, 2 puffs, QID, IN + q2h prn - isolation/airborne precautions - place in negative pressure room (2) Hypoxia: - O2 sat 85% on room air on presentation to ED - improved to 96% with 2L of supplemental oxygen via NC - likely secondary to COVID 19 infection - continue tx as above (3) Obstructive sleep apnea: - history of - CPAP ordered - pt educated on lifestyle modification to loose weight and maybe not need cpap if successful (4) HTN (hypertension): - history of - continues lisinopril (5) Hypothyroid: - continue home dose Synthroid - Pt requested adderal for help with his adhd while hospitlaized Dvt ppx: Lovenox as above Code: Full, I discussed with patient Admission and Anticipated Discharge Date Admission Date: October 05, 2020 Subjective Patient is still obviously dyspneic and tachypneic only requiring small amounts of oxygen however his work of breathing is his anxiety is also significant he has many questions regarding his Covid diagnosis I spent 20 minutes at the bedside counseling him regarding this in addition to chart review and documentation Review of Systems Review of Systems: Mild distress and fatigue no headache, blurry or double vision no speech or swallowing issues no chest pain, pressure or palpitations Persistent shortness of breath, nonproductive cough no abdominal pain, nausea or vomiting, diarrhea or constipation no dysuria, hematuria or frequency no focal joint pain or swelling no back pain, CVA tenderness or radicular pain no bruising, bleeding or rashes no focal signs of weakness or numbness or altered sensation no complaints of anxiety or depression.. Physical Exam Physical Exam: The patient appeared well nourished and normally developed. He is morbidly obese with a BMI of 41 Vital signs as documented. Head exam is normocephalic atraumatic no scleral icterus Neck is without JVD, thyromegaly, or carotid bruits. Lungs are coarse rales b/l in all lung zones Cardiac exam, Rhythm is regular.. No murmurs, rubs or gallops. Abdominal exam reveals normal bowel sounds, soft non tender, no masses Extremities are nonedematous and both pedal pulses are present Neurologic exam is alert and oriented, no focal loss of strength or sensation Skin is without bruises or rashes Psychologically is with concerns for anxiety. Results & Data Results & Data ([facility]) Vital Signs (Past 12 Hours) Vital Signs Temp Pulse Pulse Resp BP BP Pulse Ox 10/05/20 08:52 10/05/20 07:58 99.0 F 72 22 127/77 92 10/05/20 07:39 73 18 93 10/05/20 05:02 70 18 92 10/05/20 03:55 98.4 F 72 22 149/94 H 94 10/05/20 03:42 10/05/20 03:00 81 24 96 10/05/20 02:30 70 22 101/68 95 10/05/20 02:00 73 22 105/63 94 10/05/20 01:50 75 17 94 10/05/20 01:30 76 26 H 104/59 L 94 10/05/20 01:00 77 26 H 115/64 93 10/05/20 00:30 88 20 116/66 95 10/05/20 00:00 80 20 114/64 96 10/04/20 23:30 77 22 115/66 94 10/04/20 23:00 83 18 112/83 93 10/04/20 22:40 84 22 93 10/04/20 22:30 87 24 123/77 94 10/04/20 22:20 92 H 22 92 10/04/20 22:09 86 18 126/79 90 10/04/20 22:05 85 22 86 L 10/04/20 21:45 82 84 24 112/83 85 L 10/04/20 21:38 99.5 F 84 22 158/86 H 90 Pulse Ox 10/05/20 08:52 94 10/05/20 07:58 10/05/20 07:39 10/05/20 05:02 10/05/20 03:55 10/05/20 03:42 93 10/05/20 03:00 10/05/20 02:30 10/05/20 02:00 10/05/20 01:50 10/05/20 01:30 10/05/20 01:00 10/05/20 00:30 10/05/20 00:00 10/04/20 23:30 10/04/20 23:00 10/04/20 22:40 10/04/20 22:30 10/04/20 22:20 10/04/20 22:09 10/04/20 22:05 10/04/20 21:45 10/04/20 21:38 PG Care Time/CCT Total # of Minutes Spent Total Time Spent with Patient: Total time spent is greater than 50% in coordination of care (as documented) at patient's floor/unit and/or counseling patient: Coding Level of Care Code 73049 Subseq Hosp Care Lvl 2 Diagnoses COVID-19 U07.1 Hypoxia R09.02 Obstructive sleep apnea G47.33 HTN (hypertension) I10 Hypothyroid E03.9
[2020-10-05 09:03] LABS: Ferritin 1548.1 ng/ml (8-388)
[2020-10-05] MEDS ORDERED: PHARMACY GLYCEMIC MGMT CONSULT PRN (10:11)
[2020-10-05] MEDS ORDERED: GLUCOSE 10 TABS/TUBE PO PRN (10:15)
[2020-10-05] MEDS ORDERED: CARBOHYDRATES FOR HYPOGLYCEMIA PO PRN (10:15)
[2020-10-05] MEDS ORDERED: GLUCOSE 40% GEL 15 GM TUBE PO PRN (10:15)
[2020-10-05] MEDS ORDERED: DEXTROSE 50% 50 ML SYRINGE IV PRN (10:15)
[2020-10-05] MEDS ORDERED: GLUCAGON FOR INJ 1 MG VIAL IM PRN (10:15)
[2020-10-05] MEDS ORDERED: ALBUTEROL HFA 8 GM INHALER INH PRN (10:18)
[2020-10-05] MEDS ORDERED: INSULIN HUMAN NPH SC ONE (10:30)
[2020-10-05] MEDS ORDERED: AMPHETAMINE ASP/SULF/DEXTRAMPH 10 MG TAB PO ONE (10:30)
--- NOTE | 2020-10-05 11:27 | Electrocardiogram Report ---
Test Reason : Blood Pressure : / mmHG Vent. Rate : 083 BPM Atrial Rate : 083 BPM P-R Int : 144 ms QRS Dur : 084 ms QT Int : 368 ms P-R-T Axes : 038 036 -02 degrees QTc Int : 432 ms Normal sinus rhythm Normal ECG When compared with ECG of 21-APR-2015 11:00, Inverted T waves have replaced nonspecific T wave abnormality in Inferior leads Confirmed by Prince Burch ([id number]) on 10/05/2020 11:27:29 AM Referred By: REFERRED SELF Confirmed By:Jamar Burch
[2020-10-05] MEDS: INSULIN ASPART 100 UNITS/ML 3 ML PEN SC SCH ×3 (12:05→20:29)
--- NOTE | 2020-10-05 13:18 | Pharmacy Report ---
Glycemic Control Consultation - Date of Service October 05, 2020 - Scope Scope: Glycemic Pharmacist consulted for glycemic control and to write orders per [facility] inpatient glycemic control protocol. - Objective Weight: 131.8 kg Accuchecks BSG (last 24hrs): 10/04/20 10/05/20 10/05/20 22:27 07:22 11:55 Glucose 185 H 274 H POC Glucose 314 H* Laboratory Data (last 24hrs): 10/04/20 10/05/20 22:27 07:22 Potassium 3.8 4.7 D Carbon Dioxide 29 28 Anion Gap 8.0 5.0 Creatinine 1.12 1.07 Est Cr Clr Drug Dosing 108.4 112.8 - Recent Pertinent Medications Outpatient Anti-diabetic Regimen: * N/A * HbA1C ordered Risk Factors for Insulin Resistance: * Steroids: dexamethasone 6 mg IV daily * Infection: Remdesivir/ Zithromax for COVID 19 / possible pneumonia * Diet: heart healthy - Assessment & Plan Assessment & Plan: ASSESSMENT: * Mr Mejia is a 50 y/o M without a history of diabetes who presents with COVID-19. He was started on dexamethasone 6 mg IV daily in the ER. * Admitting BSG (prior to dexamethasone administration) was 185 mg/dL. Fasting BSG on PRP was 274 mg/dL. * Due to steroid administration, start NPH 40 units (0.4 units/kg of adjusted body weight). Hold off on Lantus at this time as fasting BSG is muddied by dexamethasone administration yesterday. Patient will most likely require some kind of basal insulin but unclear exactly how much. Check HbA1C. Overnight checks to see how much additional insulin patient requires. * Novolog weight-based stress of 2-3. PLAN FOR INPATIENT GLYCEMIC CONTROL: * Basal insulin * NPH 40 units SQ x 1 * Bolus insulin * NovoLog per scale ACHS or Q6hrs while NPO * Goal Range: Low 110 mg/dL - High 140 mg/dL * Correction Factor: 15 mg/dL/unit * Nutritional / Prandial insulin per carb ratio of 1 unit per 5 grams CHO consumed * Please note that the plan above was derived based on current level of insulin resistance and hospital stress. These recommendations are appropriate for inpatient admission only. Plan of care upon discharge will need to be reassessed to avoid potential outpatient hypo/hyperglycemia. Thank you.
[2020-10-05] MEDS ORDERED: dexAMETHasone 6 MG in SYRINGE 0 ML IV SCH (22:00)
[2020-10-06] MEDS: INSULIN ASPART 100 UNITS/ML 3 ML PEN SC SCH ×6 (00:06→21:00)
--- NOTE | 2020-10-06 03:21 | Billing Data ---
Date of Service October 06, 2020 Coding Level of Care Code 60778 Initial Inpt Care Lvl 3
[2020-10-06] MEDS ORDERED: REMDESIVIR 100 MG in SODIUM CHLORIDE 0.9% 230 ML IV SCH (03:30)
[2020-10-06] MEDS: LEVOTHYROXINE SODIUM 200 MCG TABLET PO SCH (05:42)
[2020-10-06 07:23] LABS: Estimated Average Glucose 214 mg/dl; Hemoglobin A1C 9.1 % (4.5-5.6)
[2020-10-06] MEDS ORDERED: INSULIN GLARGINE SOLOSTAR 100 UNITS/ML 3 ML PEN SC SCH (09:00)
[2020-10-06] MEDS: lisinopril 20 MG TAB PO SCH (09:04)
[2020-10-06] MEDS: ZINC SULFATE 220 MG CAPSULE PO SCH (09:04)
[2020-10-06] MEDS: ENOXAPARIN 80 MG/0.8 ML SYR SQ SCH ×2 (09:05→20:37)
[2020-10-06] MEDS: dexAMETHasone 6 MG in SYRINGE 0 ML IV SCH (09:06)
[2020-10-06] MEDS: DEXTROAMPHETAMINE/AMPHETAMINE ER 10 MG CAP PO SCH (10:22)
[2020-10-06] MEDS: AZITHROMYCIN 500 MG in DEXTROSE 5% 250 ML IV SCH (11:22)
[2020-10-06] MEDS: REMDESIVIR 100 MG in SODIUM CHLORIDE 0.9% 230 ML IV SCH (13:40)
--- NOTE | 2020-10-06 13:51 | Pharmacy Report ---
Glycemic Control Progress Note - Date of Service October 06, 2020 - Scope Glycemic Pharmacist consulted for glycemic control to write orders per [facility] inpatient glycemic control protocol. - Objective Accuchecks BSG(last 24 hours):: 10/05/20 10/05/20 10/05/20 17:12 20:23 23:50 POC Glucose 267 H 250 H 168 H 10/06/20 10/06/20 10/06/20 04:05 07:32 11:48 POC Glucose 185 H 194 H 205 H HbA1c:: Hemoglobin A1c 9.1 % (4.5-5.6) H 10/06/20 05:24 - Recent Pertinent Medications The patient is currently receiving: * Basal insulin: NPH 40 units SQ X 1 * Correctional Insulin: Novolog Correction per scale ACHS Goal Range: Low 110 mg/dL - High 140 mg/dL Correction Factor: 15 mg/dL/unit * Prandial insulin: Per carb ratio of 1 unit per 5 grams CHO consumed - Outpatient Anti-Diabetic Meds N/A - Assessment & Plan ASSESSMENT: * See progress note from 10/05/20 for more background info, in short: * Pt receiving SQ basal bolus insulin regimen for hyperglycemia secondary to baseline DM (outpatient regimen on hold). Patient is receiving dexamethasone 6 mg IV daily. * Patient is currently receiving an average of 91 units of insulin per day * 40 units of basal insulin * 51 units of prandial/correctional insulin * BSGs ranging 168 - 314 mg/dl over the past 24hrs * Changes needed to insulin regimen: * AM Fasting BSG = 194 mg/dl. This is above goal range for patient based on inpatient targets and co-morbidities. The patient's HbA1C is elevated at 9.1% indicating he will have a baseline basal insulin requirement. Give Lantus adjusted body weight full weight based stress of 2 for now. Hold off on NPH due to decreased PO intake. * Post-prandial BSGs did trend downwards indicating CF is appropriate. Tighten CR since NPH not given. * Total daily dose is TBD units. PLAN FOR INPATIENT GLYCEMIC CONTROL: * STARTING Lantus 35 units SQ daily * Continuing correction factor of 15 mg/dl/unit * TIGHTENING carb ratio to 1 unit per 4 grams CHO consumed * Continuing goal range of Low 110 mg/dL - High 140 mg/dL * Please note that the plan above was derived based on current level of insulin resistance and hospital stress. These recommendations are appropriate for inpatient admission only. Plan of care upon discharge will need to be reassessed to avoid potential outpatient hypo/hyperglycemia. Thank you.
[2020-10-06] MEDS: SODIUM CHLORIDE 0.9% 10ML FLUSH IV SCH (16:37)
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
[2020-10-07] MEDS: LEVOTHYROXINE SODIUM 200 MCG TABLET PO SCH (05:42)
--- NOTE | 2020-10-07 08:11 | XRay Report ---
XR chest 1V portable CLINICAL HISTORY: Shortness of breath. COMPARISON STUDY: 10/04/2010 FINDINGS: The heart remains enlarged. There are multifocal airspace opacities stable to minimally pro gressive. The findings are consistent with a multifocal pneumonia. There are no large effusions.[ IMPRESSION: Stable to slightly progressive multifocal airspace opacities consistent with a multifocal pneumonia ACT 112: Negative or not required by law. Electronically signed by: Garrick Varner M.D. 10/07/2020 8:10 AM
[2020-10-07] MEDS: AZITHROMYCIN 250 MG TAB PO SCH (08:41)
[2020-10-07] MEDS: ZINC SULFATE 220 MG CAPSULE PO SCH (08:41)
[2020-10-07] MEDS: dexAMETHasone 6 MG in SYRINGE 0 ML IV SCH (08:41)
[2020-10-07] MEDS: lisinopril 20 MG TAB PO SCH (08:41)
[2020-10-07] MEDS: ENOXAPARIN 80 MG/0.8 ML SYR SQ SCH (08:42)
[2020-10-07] MEDS ORDERED: INSULIN GLARGINE SOLOSTAR 100 UNITS/ML 3 ML PEN SC SCH (09:00)
[2020-10-07] MEDS ORDERED: FUROSEMIDE 20 MG in SYRINGE 0 ML IV ONE (09:30)
[2020-10-07] MEDS: INSULIN ASPART 100 UNITS/ML 3 ML PEN SC SCH ×4 (09:35→21:23)
[2020-10-07] MEDS: DEXTROAMPHETAMINE/AMPHETAMINE ER 10 MG CAP PO SCH (10:43)
[2020-10-07 11:01] LABS: D Dimer 660 ug/L FEU (0-500)
[2020-10-07 11:24] LABS: BUN Creatinine Ratio 23.2 (10-20); Calcium 8.7 mg/dl (8.5-10.1); Creatinine Clr Calc Pharmacy 116.7 ml/min; Est GFR (African American) 94.4; Est GFR (Non-African American) 81.4; Potassium 4.1 mmol/L (3.5-5.1)
[2020-10-07 11:26] LABS: Ferritin 975.1 ng/ml (8-388)
--- NOTE | 2020-10-07 12:10 | Pharmacy Report ---
Glycemic Control Progress Note - Date of Service October 07, 2020 - Scope Glycemic Pharmacist consulted for glycemic control to write orders per [facility] inpatient glycemic control protocol. - Objective Accuchecks BSG(last 24 hours):: 10/06/20 10/06/20 10/07/20 16:50 20:30 08:18 Glucose POC Glucose 247 H 126 H 127 H 10/07/20 10/07/20 10:23 11:39 Glucose 229 H POC Glucose 179 H HbA1c:: Hemoglobin A1c 9.1 % (4.5-5.6) H 10/06/20 05:24 - Recent Pertinent Medications The patient is currently receiving: * Basal insulin: Lantus 35 units every 24 hours * Correctional Insulin: Novolog Correction per scale ACHS Goal Range: Low 110 mg/dL - High 140 mg/dL Correction Factor: 15 mg/dL/unit * Prandial insulin: Per carb ratio of 1 unit per 4 grams CHO consumed - Outpatient Anti-Diabetic Meds N/A - Assessment & Plan ASSESSMENT: * See progress note from 10/05/19 for more background info, in short: * Pt receiving SQ basal bolus insulin regimen for hyperglycemia secondary to baseline DM (outpatient regimen on hold),stress/infection (currently with COVID 19 on dexamethasone 6 mg IV daily). * Patient is currently receiving an average of 79 units of insulin per day * 35 units of basal insulin * 44 units of prandial/correctional insulin * BSGs ranging 126 - 247 mg/dl over the past 24hrs * Changes needed to insulin regimen: * AM Fasting BSG = 127 mg/dl. This is in goal range for patient based on inpatient targets and co-morbidities. This is drastically reduced from yesterday's fasting of 194 mg/dL. Will reduce basal by 15% to 30 units. * Post-prandial BSGs were relatively well controlled yesterday. Max increase of 50 points with steroids. Will tighten up CF/CR today to keep tighter glycemic control. Slight elevation at lunch (179 mg/dL) but lunch BSG taken only 2 hours after breakfast insulin administration. * Total daily dose ~70-80 units while on steroids. Expect this to decrease with steroid cessation. PLAN FOR INPATIENT GLYCEMIC CONTROL: * DECREASING Lantus to 30 units SQ daily * Continuing correction factor of 15 mg/dl/unit * TIGHTENING carb ratio to 1 unit per 3 grams CHO consumed * Continuing goal range of Low 110 mg/dL - High 140 mg/dL * Please note that the plan above was derived based on current level of insulin resistance and hospital stress. These recommendations are appropriate for inne tient admission only. Plan of care upon discharge will need to be reassessed to avoid potential outpatient hypo/hyperglycemia. Thank you.
[2020-10-07] MEDS: REMDESIVIR 100 MG in SODIUM CHLORIDE 0.9% 230 ML IV SCH (12:11)
[2020-10-07] MEDS: SODIUM CHLORIDE 0.9% 10ML FLUSH IV SCH (13:38)
--- NOTE | 2020-10-07 16:17 | Hospitalist Progress Note ---
Date of Service October 07, 2020 Assessment & Plan (1) COVID-19: Mr. Mejia is a 50 yo M with a PMHx of obesity, obstructive sleep apnea, and HTN who tested positive COVID 19 test on 10/03/20 at a local [facility]. He came to the ED this evening for worsening SOB. Patient was hypoxic on arrival and placed on supplemental oxygen. - patient tested positive on admission to our facility (PCR testing) 10/04/20 - meets criteria for severe disease (O2 saturation < 94%) - risk factors for severe disease include obesity, hx SANNA - CXR with diffuse interstitial opacities repeat x-ray on 10/07 with slight progression perhaps could be pulmonary edema discussed case with on-call for pulmonary medicine recommended intravenous Lasix which was administered - started Remdesivir recommend 5 day course unless hypoxia resolves - started Dexamethasone; recommend 10 day course unless hypoxia resolves - start zinc sulfate 220mg, PO daily - start Azithromycin 250 mg po daily - start Lovenox 0.5mg/kg, SQ, BID - Ventolin, 2 puffs, QID, IN + q2h prn - isolation/airborne precautions - place in negative pressure room (2) Hypoxia: - O2 sat 85% on room air on presentation to ED - improved to 96% with 2L of supplemental oxygen via NC - likely secondary to COVID 19 infection - continue tx as above Concerned with stalling hypoxia for possible progression. Will increase anticoagulation to avoid the thromboinflammatory phase of Covid (3) Obstructive sleep apnea: - history of - CPAP ordered - pt educated on lifestyle modification to loose weight and maybe not need cpap if successful (4) HTN (hypertension): - history of - continues lisinopril (5) Hypothyroid: - continue home dose Synthroid - Pt requested adderal for help with his adhd while hospitlaized Dvt ppx: Lovenox as above Code: Full, (6) Anxiety: I discussed the patient's anxiety with him he is having difficulties dealing with the restrictive nature of the hospital stay especially in Covid times. He still does not want to take any anxiolytic medications it is still available on his med rec as needed. (7) Diabetes: Pts A1c is 9.1 likely related to his morbid obesity, not on formal mediations, will discuss furhter with the pt violetta go home on sulfonylurea, had a long bedside discussion with regarding the diagnosis of diabetes patient is open to being on a diabetic diet and continuing with diabetic care post admission Admission and Anticipated Discharge Date Admission Date: October 05, 2020 Subjective Patient is still obviously dyspneic and tachypneic, patient reportedly went to get an issue with nighttime nursing staff care developing increased anxiety and a panic attack requiring increased oxygen, chest x-ray today is slight progression and today the patient still is requiring higher oxygen levels. We will administer IV Lasix we will order some lorazepam at bedtime to help with sleeping encourage staff to find ways to work with the patient rather than creating discomfort at night Review of Systems Review of Systems: Mild distress and fatigue no headache, blurry or double vision no speech or swallowing issues no chest pain, pressure or palpitations Persistent shortness of breath, nonproductive cough no abdominal pain, nausea or vomiting, diarrhea or constipation no dysuria, hematuria or frequency no focal joint pain or swelling no back pain, CVA tenderness or radicular pain no bruising, bleeding or rashes no focal signs of weakness or numbness or altered sensation no complaints of anxiety or depression.. Physical Exam Physical Exam: The patient appeared well nourished and normally developed. He is morbidly obese with a BMI of 41 Vital signs as documented. Head exam is normocephalic atraumatic no scleral icterus Neck is without JVD, thyromegaly, or carotid bruits. Lungs are coarse rales b/l in all lung zones right greater than left Cardiac exam, Rhythm is regular.. No murmurs, rubs or gallops. Abdominal exam reveals normal bowel sounds, soft non tender, no masses Extremities are nonedematous and both pedal pulses are present Neurologic exam is alert and oriented, no focal loss of strength or sensation Skin is without bruises or rashes Psychologically is with concerns for anxiety. Results & Data Results & Data ([facility]) Vital Signs (Past 12 Hours) Vital Signs Temp Pulse Pulse Resp BP Pulse Ox Pulse Ox 10/07/20 15:56 98.8 F 61 20 113/74 92 10/07/20 11:31 98.8 F 77 20 118/74 83 L 10/07/20 10:37 93 10/07/20 08:10 99.1 F 71 20 113/73 93 10/07/20 07:00 62 10/07/20 05:31 57 L 23 10/07/20 05:00 22 10/07/20 04:30 22 134/80 90 Pulse Ox 10/07/20 15:56 10/07/20 11:31 10/07/20 10:37 10/07/20 08:10 10/07/20 07:00 10/07/20 05:31 90 10/07/20 05:00 10/07/20 04:30 PG Care Time/CCT Total # of Minutes Spent Total Time Spent with Patient: Total time spent is greater than 50% in coordination of care (as documented) at patient's floor/unit and/or counseling patient: Coding Level of Care Code 48120 Subseq Hosp Care Lvl 3 Diagnoses COVID-19 U07.1 Hypoxia R09.02 Obstructive sleep apnea G47.33 HTN (hypertension) I10 Hypothyroid E03.9 Anxiety F41.9 Diabetes E11.9
[2020-10-07] MEDS: ENOXAPARIN 100 MG/1ML SYR SQ SCH (21:40)
[2020-10-07] MEDS: MELATONIN 3 MG TAB PO PRN (21:40)
[2020-10-07] MEDS: LORazepam 1 MG TAB PO SCH (21:40)
[2020-10-08] MEDS: LEVOTHYROXINE SODIUM 200 MCG TABLET PO SCH (06:29)
[2020-10-08 07:41] LABS: Creatinine Clr Calc Pharmacy 127.1 ml/min; Est GFR (African American) 105.1; Est GFR (Non-African American) 90.7
[2020-10-08] MEDS: INSULIN ASPART 100 UNITS/ML 3 ML PEN SC SCH ×4 (08:00→23:05)
[2020-10-08] MEDS: dexAMETHasone 6 MG in SYRINGE 0 ML IV SCH (08:36)
[2020-10-08] MEDS: ENOXAPARIN 100 MG/1ML SYR SQ SCH ×2 (08:36→21:38)
[2020-10-08] MEDS: lisinopril 20 MG TAB PO SCH (08:37)
[2020-10-08] MEDS: ZINC SULFATE 220 MG CAPSULE PO SCH (08:37)
[2020-10-08] MEDS: AZITHROMYCIN 250 MG TAB PO SCH (08:37)
[2020-10-08] MEDS ORDERED: INSULIN GLARGINE SOLOSTAR 100 UNITS/ML 3 ML PEN SC SCH (09:00)
[2020-10-08] MEDS: REMDESIVIR 100 MG in SODIUM CHLORIDE 0.9% 230 ML IV SCH (11:14)
[2020-10-08] MEDS: SODIUM CHLORIDE 0.9% 10ML FLUSH IV SCH (12:21)
--- NOTE | 2020-10-08 14:30 | Pharmacy Report ---
Glycemic Control Progress Note - Date of Service October 08, 2020 - Scope Glycemic Pharmacist consulted for glycemic control to write orders per [facility] inpatient glycemic control protocol. - Objective Accuchecks BSG(last 24 hours):: 10/07/20 10/07/20 10/08/20 16:41 20:45 08:03 POC Glucose 204 H 129 H 110 H 10/08/20 11:56 POC Glucose 145 H HbA1c:: Hemoglobin A1c 9.1 % (4.5-5.6) H 10/06/20 05:24 - Recent Pertinent Medications The patient is currently receiving: * Basal insulin: Lantus 30 units every 24 hours * Correctional Insulin: Novolog Correction per scale ACHS Goal Range: Low 110 mg/dL - High 140 mg/dL Correction Factor: 15 mg/dL/unit * Prandial insulin: Per carb ratio of 1 unit per 3 grams CHO consumed - Outpatient Anti-Diabetic Meds n/a - Assessment & Plan ASSESSMENT: * See progress note from 10/05/20 for more background info, in short: * Pt receiving SQ basal bolus insulin regimen for hyperglycemia secondary to baseline DM (outpatient regimen on hold),stress/infection (currently COVID-19 positive), and dexamethasone 6 mg IV daily (day 12/19) * Patient is currently receiving an average of 71 units of insulin per day * 30 units of basal insulin * 41 units of prandial/correctional insulin * BSGs ranging 127 - 204 mg/dl over the past 24hrs * Changes needed to insulin regimen: * AM Fasting BSG = 110 mg/dl. This is in goal range for patient based on inpatient targets and co-morbidities. The patient's fasting BSG continues to trend downwards so will decrease basal insulin by ~20% to 25 units daily. This is approximately full weight-based stress of 1. * Post-prandial BSGs did trend upwards yesterday -- tighten CR further as this is what is primarily affected by steroids. Pushing towards 2/3 of TDD being bolus and 1/3 of TDD being basal. * Total daily dose = ~60-70 units. Reduced insulin appropriately. PLAN FOR INPATIENT GLYCEMIC CONTROL: * DECREASING Lantus to 25 units SQ qAM * Continuing correction factor of 15 mg/dl/unit * TIGHTENING carb ratio to 1 unit per 2 grams CHO consumed * Continuing goal range of Low 110 mg/dL - High 140 mg/dL RECOMMENDATIONS FOR DISCHARGE: * Metformin should be started at the time type 2 diabetes is diagnosed unless there are contraindications. Metformin is effective and safe, is inexpensive, and may reduce risk of cardiovascular events and . * B12 supplementation may be necessary with jail metformin use * FDA has revised the label for metformin to reflect its safety in patients with eGFR 30 mL/min or above * Recommend starting: Metformin XR 500mg PO daily with evening meal. Typically the XR formulation of metformin is better tolerated than the immediate release formulation. Continue to titrate metformin dosing upwards as recommended. Dosage increases should be made in increments of 500 mg weekly, up to 2,000 mg/day PO, given in divided doses. Doses above 2000 mg/day may be better tolerated if divided and given 3 times per day with meals. Max: 2,550 mg/day PO, in divided doses * Support Patient Self-Management * Healthy Lifestyle (diet, exercise, and smoking cessation) * Disease self-management (SMBG) * Prevention of complications (BP, Lipid goals, Immunizations) * Consider outpatient Diabetes Self-Management Education & Suppo Thank you.
--- NOTE | 2020-10-08 18:29 | Hospitalist Progress Note ---
Date of Service October 08, 2020 Assessment & Plan (1) COVID-19: Mr. Mejia is a 50 yo M with a PMHx of obesity, obstructive sleep apnea, and HTN who tested positive COVID 19 test on 10/03/20 at a local [facility] clinic. He came to the ED for worsening SOB. Patient was hypoxic on arrival and placed on supplemental oxygen. - patient tested positive on admission to our facility (PCR testing) 10/04/20 - meets criteria for severe disease (O2 saturation < 94%) - risk factors for severe disease include obesity, hx SANNA - CXR with diffuse interstitial opacities repeat x-ray on 10/07 - started Remdesivir recommend 5 day course unless hypoxia resolves - started Dexamethasone; unless hypoxia resolves - start zinc sulfate 220mg, PO daily - start Azithromycin 250 mg po daily - start Lovenox 0.5mg/kg, SQ, BID - Ventolin, 2 puffs, QID, IN + q2h prn - isolation/airborne precautions - place in negative pressure room (2) Hypoxia: - O2 sat 85% on room air on presentation to ED - improved to 96% with 2L of supplemental oxygen via NC - likely secondary to COVID 19 infection - continue tx as above (3) Obstructive sleep apnea: - history of - CPAP ordered - pt educated on lifestyle modification to loose weight and maybe not need cpap if successful (4) HTN (hypertension): - history of - continues lisinopril (5) Hypothyroid: - continue home dose Synthroid - Pt requested adderal for help with his adhd while hospitlaized Dvt ppx: Lovenox as above Code: Full, (6) Anxiety: I discussed the patient's anxiety with him he is having difficulties dealing with the restrictive nature of the hospital stay especially in Covid times. he has had some ativan and did sleep well (7) Diabetes: Pts A1c is 9.1 likely related to his morbid obesity, not on formal mediations, will discuss furhter with the pt violetta go home on sulfonylurea, had a long bedside discussion with regarding the diagnosis of diabetes patient is open to being on a diabetic diet and continuing with diabetic care post admission Admission and Anticipated Discharge Date Admission Date: October 05, 2020 Subjective Patient tolerating decreasing oxygen, chest x-ray no real improvement, but encouraged that we could tolerate reducing oxygen lorazepam at bedtime with melatonin to help with sleeping encourage staff to find ways to work with the patient rather than increasing oxygen at night Review of Systems Review of Systems: Mild distress and fatigue no headache, blurry or double vision no speech or swallowing issues no chest pain, pressure or palpitations Persistent shortness of breath, nonproductive cough no abdominal pain, nausea or vomiting, diarrhea or constipation no dysuria, hematuria or frequency no focal joint pain or swelling no back pain, CVA tenderness or radicular pain no bruising, bleeding or rashes no focal signs of weakness or numbness or altered sensation no complaints of anxiety or depression.. Physical Exam Physical Exam: The patient appeared well nourished and normally developed. He is morbidly obese with a BMI of 41 Vital signs as documented. Head exam is normocephalic atraumatic no scleral icterus Neck is without JVD, thyromegaly, or carotid bruits. Lungs are coarse rales b/l in all lung zones right greater than left Cardiac exam, Rhythm is regular.. No murmurs, rubs or gallops. Abdominal exam reveals normal bowel sounds, soft non tender, no masses Extremities are nonedematous and both pedal pulses are present Neurologic exam is alert and oriented, no focal loss of strength or sensation Skin is without bruises or rashes Psychologically is with concerns for anxiety. Results & Data Results & Data ([facility]) Vital Signs (Past 12 Hours) Vital Signs Temp Pulse Pulse Resp BP Pulse Ox 10/08/20 15:33 99.7 F H 58 L 18 128/79 97 10/08/20 15:12 63 10/08/20 11:58 22 92 10/08/20 11:13 98.6 F 63 22 114/70 94 10/08/20 09:00 94 10/08/20 07:22 98.8 F 69 18 102/66 91 PG Care Time/CCT Total # of Minutes Spent Total Time Spent with Patient: Total time spent is greater than 50% in coordination of care (as documented) at patient's floor/unit and/or counseling patient: Coding Level of Care Code 10210 Subseq Hosp Care Lvl 2 Diagnoses COVID-19 U07.1 Hypoxia R09.02 Obstructive sleep apnea G47.33 HTN (hypertension) I10 Hypothyroid E03.9 Anxiety F41.9 Diabetes E11.9
[2020-10-08] MEDS: MELATONIN 3 MG TAB PO PRN (21:37)
[2020-10-08] MEDS: LORazepam 1 MG TAB PO SCH (21:37)
[2020-10-09] MEDS: LEVOTHYROXINE SODIUM 200 MCG TABLET PO SCH (06:16)
[2020-10-09] MEDS: dexAMETHasone 6 MG in SYRINGE 0 ML IV SCH (08:37)
[2020-10-09] MEDS: ENOXAPARIN 100 MG/1ML SYR SQ SCH (08:38)
[2020-10-09] MEDS: AZITHROMYCIN 250 MG TAB PO SCH (08:38)
[2020-10-09] MEDS: lisinopril 20 MG TAB PO SCH (08:38)
[2020-10-09] MEDS: ZINC SULFATE 220 MG CAPSULE PO SCH (08:38)
[2020-10-09] MEDS: INSULIN ASPART 100 UNITS/ML 3 ML PEN SC SCH ×2 (08:39→12:37)
[2020-10-09] MEDS ORDERED: INSULIN GLARGINE SOLOSTAR 100 UNITS/ML 3 ML PEN SC SCH (09:00)
--- NOTE | 2020-10-09 09:26 | Pharmacy Report ---
Pharmacy Glycemic Short Note 2 - Date of Service October 09, 2020 - Glycemic Short BSG Results (Last 24 hours): 10/08/20 10/08/20 10/08/20 11:56 16:46 20:41 POC Glucose 145 H 125 H 121 H 10/09/20 07:11 POC Glucose 95 OUTPATIENT ANTIDIABETIC REGIMEN: * N/A * HbA1c: 9.1% (10/06/20) ASSESSMENT: 10/09: * BSGs very well controlled yesterday, 110, 145, 125, and 121 mg/dL * Fasting BSG this morning of 95 mg/dL, which is good, but continues to trend down * Will decrease Lantus to 20 units today and maintain currently ordered Novolog parameters * Continues on dexamethasone 6 mg IV daily - will cover with Lantus 10/05: * Mr Mejia is a 50 y/o M without a history of diabetes who presents with COVID-19. He was started on dexamethasone 6 mg IV daily in the ER. * Admitting BSG (prior to dexamethasone administration) was 185 mg/dL. Fasting BSG on PRP was 274 mg/dL. * Due to steroid administration, start NPH 40 units (0.4 units/kg of adjusted body weight). Hold off on Lantus at this time as fasting BSG is muddied by dexamethasone administration yesterday. Patient will most likely require some kind of basal insulin but unclear exactly how much. Check HbA1C. Overnight checks to see how much additional insulin patient requires. * Novolog weight-based stress of 2-3. PLAN FOR INPATIENT GLYCEMIC CONTROL: * Hold outpatient oral diabetes medications * Basal insulin - decrease * Lantus 20 units SC daily with IV dexamethasone * Bolus insulin - continue * NovoLog per scale ACHS or Q6hrs while NPO * Goal Range: Low 110 mg/dL - High 140 mg/dL * Correction Factor: 15 mg/dL/unit * Nutritional / Prandial insulin per carb ratio of 1 unit per 2 grams CHO consumed PLAN FOR DISCHARGE: * see pharmacy glycemic note from 10/08/20
[2020-10-09 11:13] VITALS: BP 115/74; TEMP 98.2
[2020-10-09] MEDS: REMDESIVIR 100 MG in SODIUM CHLORIDE 0.9% 230 ML IV SCH (11:25)
[2020-10-09] MEDS: SODIUM CHLORIDE 0.9% 10ML FLUSH IV SCH (12:32)
[2020-10-09] MEDS ORDERED: SODIUM CHLORIDE 0.65% NA SOLN 45 ML (OCEAN) ONE (13:21)
[2020-10-09 14:41] VITALS: PULSE 73; O2SAT 84
--- NOTE | 2020-10-09 15:32 | Discharge Summary ---
Date of Service October 09, 2020 Admission HPI Per Admitting Provider Mr. Mejia is a 50 yo gentleman with a PMHx of obesity, obstructive sleep apnea, and HTN who presented to the ED for worsening SOB. Of note, he began having fevers/fatigue/cough/SOB on 09/29/20. He went to a local [facility] clinic on 10/03/20 where he tested positive for COVID 19. He has no history of underlying lung disease, although he was given an albuterol ProAir inhaler once by his PCP for wheezing with a cold. He used it twice today and it helped only somewhat. He is bringing some mucous up when he coughs. He denies any nausea/vomiting, diarrhea. Prior to being diagnosed, he denies knowledge of being in contact with a known COVID 19 positive. He is not immunocompromised. Social History. He lives with his and their two school age children. + positive for covid after him. He is a non-smoker. On arrival to the ED, his oxygen saturation was 85% on room air. He was afebrile, HR 84, RR 22, BP 158/86. His WBC was normal, no evidence of lymphopenia. Hgb normal. Electrolytes WNL. Cr at 1.12. Ddimer elevated to 790. Respiratory Biofire neg for RSV, Influenza A and B, + for covid 19. CXR with diffuse interstitia opacities. Patient was placed on 2L of supplemental oxygen via NC, after which his O2 saturation improved to 96%. He was given a 1 liter bolus of normal saline and Dexamethasone 6mg, IV, once. Principal Diagnosis covid pneumonia acute hypoxic respiratory failure diabetes type II Discharge Exam The patient appeared well still mildly dyspneic Vital signs as documented. Lungs are still with right-sided rales Cardiac exam, Rhythm is regular.. No murmurs, rubs or gallops. Abdominal exam reveals normal bowel sounds, soft non tender, no masses Extremities are nonedematous and both pedal pulses are normal. Neurologic exam is alert and oriented, no focal loss of strength or sensation Skin is without bruises or rashes Psychologically is without concerns for anxiety or depression. Discharge Data Allergies Allergy/AdvReac Type Severity Reaction Status Date / Time Bactrim Allergy Unknown hives Verified 03/09/20 12:58 sulfamethoxazole [Bactrim] Allergy Unknown hives Verified 10/04/20 22:52 trimethoprim [Bactrim] Allergy Unknown hives Verified 10/04/20 22:52 Consultations 10/05/20 00:15 ED Decision to Admit Stat Diabetes Follow up Diabetes Follow-up Needed for HgbA1c >9%,Newly Diagnosed Diabetes Hospital Course (1) COVID-19: Mr. Mejia is a 50 yo M with a PMHx of obesity, obstructive sleep apnea, and HTN who tested positive COVID 19 test on 10/03/20 at a local [facility] clinic. He came to the ED for worsening SOB. Patient has done well throughout his hospital stay he has had some issues with nighttime anxiety. He will be discharged on oxygen after completing remdesivir treatment and he will have additional dexamethasone at home. He was diagnosed with diabetes during his hospital stay and is going home on sulfonylurea and Metformin - patient tested positive on admission to our facility (PCR testing) 10/04/20 - meets criteria for severe disease (O2 saturation < 94%) - risk factors for severe disease include obesity, hx SANNA - CXR with diffuse interstitial opacities repeat x-ray on 10/07 - started Remdesivir completed 5 day course - 5 additional days of Dexamethasone after discharge - Ventolin prn (2) Hypoxia: - - improved will go home on 3 L at rest 4 L with exertion (3) Obstructive sleep apnea: - history of - CPAP continues at home - pt educated on lifestyle modification to loose weight and maybe not need cpap if successful (4) HTN (hypertension): - history of - continues lisinopril (5) Hypothyroid: - continue home dose Synthroid - Pt requested adderal for help with his adhd while hospitlaized Code: Full, (6) Anxiety: I discussed the patient's anxiety with him he is having difficulties dealing with the restrictive nature of the hospital stay especially in Covid times. will try melatonin at home (7) Diabetes: Pts A1c is 9.1 likely related to his morbid obesity, not on formal mediations, will discuss further with the pt likely go home on glyburide 2.5 and metformin 500 bid recommending diabetic diet and continuing with diabetic care post admission Total Time Total Time Spent Total Time Spent (In Minutes): greater than 30 minutes are required to complete this summary Discharge Plan Discharge Items Patient Disposition: Home - Home Health Services Reason For Visit: COVID 19 HYPOXIA Discharge Diagnosis: covid pneumonia Activity: Per Instructions section Activity Comment: please do not do intentional exercise unitl you come off oxygen Non-emergency contact: Primary Care Provider Call non-emergency contact if: your symptoms worsen Follow-up/Referrals: Glenys Sharp MD [Physician] - 10/21/20 1:30 pm Bethel Coyle Jr, DO [Primary Care Provider] - Diet: Regular Addtl Attending Provider Instructions: You have been hospitalized with Covid pneumonia oxygen replacement for you. Although you have improved greatly during her hospital stay I would imagine you will need oxygen for 4 to 6 weeks after your discharge. Although we did discuss the utility of improving until your oxygen is off your activity level it is difficult to increase activity substantially while using oxygen so I would recommend that while on oxygen to not increase your activity level. To help continue to reduce inflammation in your lungs after discharge we would include a prescription for some steroids, at your follow-up visit with your primary care provider it may be elected that you would continue steroids a little bit longer if needed. At this time it might be beneficial not to take your Adderall if you do not have a need for intense focus at home as I would recommend you take a few weeks off work to convalesce or if you do work to work in short increments but not a full day You been diagnosed with diabetes during her hospital stay most likely this is what is called type 2 diabetes and if you adopt a healthy lifestyle change her diet and exercise you may not need medications in the future. Your primary care provider can schedule appointment with a dietitian and asthma educator for further reinforcement and education on how to achieve these goals. He will be begun on 2 medications to try to help manage her blood sugars without using insulin at this point in time. You are giving a glucose meter at home to check her glucose. You should check your glucose whenever you feel ill but try to check it once a day at different times and bring the recorded information to your primary care provider's visit It is recommended that you use your oxygen at night with her CPAP hopefully the company will supplied it ability to bleed and at least 3 L when you sleep Home Isolation COVID-19 Instructions The following information about Home Isolation is from the CDC Website: https://www.cdc.gov/coronavirus/2019-ncov/hcp/gjqvuvsp-tsjqmnb-hvbzjm.html Stay home except to get medical care People who are mildly ill with COVID-19 are able to isolate at home during their illness. You should restrict activities outside your home, except for getting medical care. Do not go to work, school, or public areas. Avoid using public transportation, ride-sharing, or taxis. Separate yourself from other people and animals in your home People: As much as possible, you should stay in a specific room and away from other people in your home. Also, you should use a separate bathroom, if available. Animals: You should restrict contact with pets and other animals while you are sick with COVID-19, just like you would around other people. Although there have not been reports of pets or other animals becoming sick with COVID-19, it is still recommended that people sick with COVID-19 limit contact with animals until more information is known about the virus. When possible, have another member of your household care for your animals while you are sick. If you are sick with COVID-19, avoid contact with your pet, including petting, snuggling, being kissed or licked, and sharing food. If you must care for your pet or be around animals while you are sick, wash your hands before and after you interact with pets and wear a face mask. Call ahead before visiting your doctor If you have a medical appointment, call the healthcare provider and tell them that you have or may have COVID-19. This will help the healthcare providers office take steps to keep other people from getting infected or exposed. Wear a face mask You should wear a face mask when you are around other people (e.g., sharing a room or vehicle) or pets and before you enter a healthcare providers office. If you are not able to wear a face mask (for example, because it causes trouble breathing), then people who live with you should not stay in the same room with you, or they should wear a face mask if they enter your room. Cover your coughs and sneezes Cover your mouth and nose with a tissue when you cough or sneeze. Throw used tissues in a lined trash can. Immediately wash your hands with soap and water for at least 20 seconds or, if soap and water are not available, clean your hands with an alcohol-based hand transportation manager that contains at least 60% alcohol. Clean your hands often Wash your hands often with soap and water for at least 20 seconds, especially after blowing your nose, coughing, or sneezing; going to the bathroom; and before eating or preparing food. If soap and water are not readily available, use an alcohol-based hand transportation manager with at least 60% alcohol, covering all surfaces of your hands and rubbing them together until they feel dry. Soap and water are the best option if hands are visibly dirty. Avoid touching your eyes, nose, and mouth with unwashed hands. Avoid sharing personal household items You should not share dishes, drinking glasses, cups, eating utensils, towels, or bedding with other people or pets in your home. After using these items, they should be washed thoroughly with soap and water. Clean all high-touch surfaces everyday High touch surfaces include counters, tabletops, doorknobs, bathroom fixtures, toilets, phones, keyboards, tablets, and bedside tables. Also, clean any surfaces that may have blood, stool, or body fluids on them. Use a household cleaning spray or wipe, according to the label instructions. Labels contain instructions for safe and effective use of the cleaning product including precautions you should take when applying the product, such as wearing gloves and making sure you have good ventilation during use of the product. Monitor your symptoms Seek prompt medical attention if your illness is worsening (e.g., difficulty breathing).Beforeseeking care, call your healthcare provider and tell them that you have, or are being evaluated for, COVID-19. Put on a face mask before you enter the facility. These steps will help the healthcare providers office to keep other people in the office or waiting room from getting infected or exposed. Ask your healthcare provider to call the local or state health department. Persons who are placed under active monitoring or facilitated self- monitoring should follow instructions provided by their local health department or occupational health professionals, as appropriate. When working with your local health department check their available hours. If you have a medical emergency and need to call 911, notify the dispatch personnel that you have, or are being evaluated for COVID-19. If possible, put on a face mask before emergency medical services arrive. Discontinuing home isolation Patients with confirmed COVID-19 should remain under home isolation precautions until the risk of secondary transmission to others is thought to be low. The decision to discontinue home isolation precautions should be made on a [id number] basis, in consultation with healthcare providers and state and local health departments. Pending Studies at Discharge: No Stand-Alone Forms: My [facility] [employer], Smoking Cessation Medications and DC Order Prescriptions: New dexamethasone [Decadron] 6 mg tablet 6 mg PO DAILY Qty: 5 RF: 0 metformin 500 mg tablet 500 mg PO BID Qty: 60 RF: 2 glyburide 5 mg tablet 5 mg PO DAILY Qty: 30 RF: 3 (DME) Oxygen Home Liters Per Minute 4 ea .Route DAILY Qty: 1 RF: 0 albuterol sulfate [Ventolin HFA] 90 mcg/actuation Hfa Aerosol Inhaler 2 puff inhalation QIDR PRN (Reason: sob) Qty: 1 RF: 0 Continued lisinopril 20 mg Tablet 20 mg PO QAM RF: 0 dextroamphetamine-amphetamine [Adderall] 10 mg Tablet 10 mg PO DAILY PRN (Reason: Focus) RF: 0 dextroamphetamine-amphetamine [Adderall XR] 20 mg Capsule,Extended Release 24hr 20 - 40 mg PO QAM RF: 0 levothyroxine 200 mcg Tablet 200 mcg PO QAM RF: 0 albuterol sulfate [Ventolin HFA] 90 mcg/actuation Hfa Aerosol Inhaler 2 puff INHALATION QID PRN (Reason: Shortness Of Breath Or Wheezing) RF: 0 loratadine 10 mg Tablet 10 mg PO DAILY PRN (Reason: Allergy Symptoms) RF: 0 Discontinued Airborne Gummy 250-11.66 mg Tablet,Chewable 1 tab PO DAILY RF: 0 Discharge Orders: Discharge Order (Routine); Ordered 10/09/20 Ordered By: Ananda Markham/Other Patient Handouts: COVID-19 Home Care, Diabetes and Heart Disease, Insulin How to Use and Where to Inject, Healthy Meals for Diabetes, Eating Out When You Have Diabetes, Diabetes Shopping Preparing Meals, Diabetes Exercise Get Started, Diabetes Learn Serve Portion Size Admission Data Admit Date/Time: 10/05/20 03:13 Attending Provider: Ananda Santana Admit Provider: Sharifa Gomez Primary Care Provider: Bethel Coyle Jr Other Providers: Harvinder Patterson Other Interventions: Discharge Summary Assessment (RN) Last Done: 10/09/20 14:29 Coding Level of Care Code D/C Day Management >30 mins Diagnoses COVID-19 U07.1 Hypoxia R09.02 Obstructive sleep apnea G47.33 HTN (hypertension) I10 Hypothyroid E03.9 Anxiety F41.9 Diabetes E11.9
== END 2020-10-09 16:49 | disposition home health service (06) | DRG 177 ==
LOC: ED 21:35 → SUATTDRO 10-05 03:13 → 2S 10-05 03:13